=== PATIENT | male | born 1955 | race Hispanic/Latino ===

== ENCOUNTER 2017-12-11 06:41 | Day surgery (SDC) | payer MEDICARE ==
[2017-12-03 12:27] VITALS: BMI 19.2
[2017-12-11] MEDS ORDERED: Lactated Ringer's 500 ML IV ONE (07:35)
[2017-12-11] MEDS ORDERED: Propofol 10 mg/ml Inj (20 ML) ONE ×2 (08:12→09:06)
[2017-12-11] MEDS ORDERED: EPINEPHrine 1 mg/ml (1:1000) Inj ONE (08:24)
[2017-12-11 09:24] VITALS: TEMP 97
[2017-12-11 09:41] VITALS: BP 131/75; PULSE 91; RESP 21; O2SAT 95
== END 2017-12-11 11:38 | disposition home or self-care (01) ==
LOC: H.ENDO 06:41
PROVIDERS: ATTEND Internal Medicine Gastroenterology
DX: Z12.11 Encounter for screening for malignant neoplasm of colon (principal); K64.1 Second degree hemorrhoids; K64.4 Residual hemorrhoidal skin tags; D12.0 Benign neoplasm of cecum; D50.9 Iron deficiency anemia, unspecified; K20.9 Esophagitis, unspecified; I85.00 Esophageal varices without bleeding; K25.9 Gastric ulcer, unspecified as acute or chronic, without hemorrhage or perforation; K29.60 Other gastritis without bleeding; K76.6 Portal hypertension; K31.89 Other diseases of stomach and duodenum; K26.9 Duodenal ulcer, unspecified as acute or chronic, without hemorrhage or perforation; K29.80 Duodenitis without bleeding
CPT/HCPCS: 43239; 43255; 45380; 88305; 88342; J0171; J2001; J2704; J7120